=== PATIENT | male | born 1985 | race American Indian/Alaskan Native ===

== ENCOUNTER 2018-08-11 08:21 | Emergency (ER) | payer MEDICAID ==
[2018-08-11] MEDS ORDERED: IBUPROFEN PO ONE (09:05)
[2018-08-11] MEDS ORDERED: BOOSTRIX IM ONE (09:05)
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
--- NOTE | 2018-08-11 09:58 | XRay Report ---
LEFT WRIST, 2 views: HISTORY: Pain. 2 views demonstrate the carpal bones to be well mineralized with well preserved bony mineralization and interosseous joint spaces. The carpal and adjacent articular bones have normal contours. The surrounding soft tissues are unremarkable. IMPRESSION: Normal study.
[2018-08-11 11:04] VITALS: BP 128/82
== END 2018-08-11 10:30 | disposition home or self-care (01) ==
LOC: ED 08:21
DX: S60.212A Contusion of left wrist, initial encounter (principal); S60.812A Abrasion of left wrist, initial encounter; M79.18 Myalgia, other site; V49.49XA Driver injured in collision with other motor vehicles in traffic accident, initial encounter; Y93.89 Activity, other specified; Y92.410 Unspecified street and highway as the place of occurrence of the external cause; Y99.8 Other external cause status
CPT/HCPCS: 90471; 90715